=== PATIENT | female | born 1930 | race Caucasian/White ===

== ENCOUNTER 2017-11-29 12:09 | Emergency (ER) | payer MEDICARE ==
[~2017-11-29] VITALS: Ht 160 cm; Wt 63.6 kg
[2017-11-29 12:11] VITALS: BP 132/62; PULSE 81; RESP 20; TEMP 98.6; O2SAT 91
[2017-11-29] MEDS ORDERED: SIMV40TA PO (12:49)
[2017-11-29] MEDS ORDERED: HYDR25TA5 PO (12:49)
[2017-11-29] MEDS ORDERED: MELO7.5T27 PO (12:49)
[2017-11-29] MEDS ORDERED: CILO50TA PO (12:49)
[2017-11-29] MEDS ORDERED: ASPI81CH6 CHEW (12:49)
[2017-11-29] MEDS ORDERED: UMEC1AER INH (12:49)
[2017-11-29] MEDS ORDERED: AMLO10TA2 PO (12:49)
[2017-11-29] MEDS ORDERED: CALC8.5C CHEW (12:49)
[2017-11-29] MEDS ORDERED: MULT-65 PO (12:49)
[2017-11-29] MEDS ORDERED: LISI10TA3 PO (12:49)
[2017-11-29] MEDS ORDERED: SACC1CAP3 PO (12:49)
[2017-11-29] MEDS ORDERED: LEVO50TA4 PO (12:49)
[2017-11-29] MEDS ORDERED: BIOTCAP PO (12:49)
--- NOTE | 2017-11-29 12:51 | PD ---
HPI Chief Complaint: GI Complaint Time Seen by Provider: 12:37 Travel History International Travel<30 days: No Contact w/Intl Traveler<30days: No Traveled to known affect area: No History of Present Illness HPI 3 DAYS AGO ONSET OF N/V/D AND RUNNY NOSE/DRY COUGH WELL LLQ AREA PAIN, , NONRAD, ....NO SICK CONTACTS.....NO ALLEVIATING/AGGRAVATING FACTORS.....DENIES ASSOC FACTORS FEVER/NEWTON/CP/BACK PAIN/ PFSH Past Medical History Hx Anticoagulant Therapy: Yes Cerebrovascular Accident: Yes Social History Tobacco Use: No Allergies-Medications (Allergen,Severity, Reaction): Coded Allergies: No Known Drug Allergies (Verified Allergy, Unknown, 11/29/17) Reported Meds & Prescriptions Reported Meds & Active Scripts Active Zofran Odt (Ondansetron Odt) 4 Mg Tab 4 Mg SL Q6HR PRN Tamiflu (Oseltamivir Phosphate) 75 Mg Cap 75 Mg PO BID 5 Days Reported Meloxicam 7.5 Mg Tab 7.5 Mg PO DAILY Biotin 5 Mg Cap 5 Mg PO Cilostazol 50 Mg Tab 50 Mg PO DAILY Simvastatin 40 Mg Tab 40 Mg PO HS Lisinopril 10 Mg Tab 10 Mg PO DAILY Hydrochlorothiazide 25 Mg Tab 25 Mg PO DAILY Amlodipine (Amlodipine Besylate) 10 Mg Tab 10 Mg PO DAILY Anoro Ellipta Inh (Umeclidinium/Vilanterol) 62.5-25 Mcg/Act Aero 1 Puff INH DAILY Viactiv (Calcium-Vitamins D & K) 500-500-40 Mg-Unit-Mcg Chew 1 Ea CHEW Probiotic (Saccharomyces Boulardii) 250 Mg Cap 250 Mg PO DAILY Multi-Vitamin Daily (Multiple Vitamin) 1 Tab Tab 1 Tab PO DAILY Levothyroxine (Levothyroxine Sodium) 50 Mcg Tab 50 Mcg PO DAILY Aspirin Low Dose (Aspirin) 81 Mg Chew 81 Mg CHEW DAILY Review of Systems Except as stated in HPI: all other systems reviewed are Neg General / Constitutional: No: Fever Eyes: No: Visual changes HENT: No: Headaches Cardiovascular: No: Chest Pain or Discomfort Respiratory: No: Shortness of Breath Gastrointestinal: Positive: Nausea, Vomiting, Diarrhea, Abdominal Pain Genitourinary: No: Dysuria Musculoskeletal: No: Pain Skin: No Rash Neurologic: No: Weakness Psychiatric: No: Depression Endocrine: No: Polydipsia Hematologic/Lymphatic: No: Easy Bruising Physical Exam Narrative GENERAL: SKIN: Warm and dry. HEAD: Atraumatic. Normocephalic. EYES: Pupils equal and round. No scleral icterus. No injection or drainage. ENT: No nasal bleeding or discharge. Mucous membranes pink and moist. NECK: Trachea midline. No JVD. CARDIOVASCULAR: Regular rate and rhythm. RESPIRATORY: No accessory muscle use. Clear to auscultation. Breath sounds equal bilaterally. GASTROINTESTINAL: Abdomen soft, non-tender, nondistended. MUSCULOSKELETAL: Extremities without clubbing, cyanosis, or edema. No obvious deformities. NEUROLOGICAL: Awake and alert. No obvious cranial nerve deficits. Motor grossly within normal limits. Five out of 5 muscle strength in the arms and legs. Normal speech. PSYCHIATRIC: Appropriate mood and affect; insight and judgment normal. Data Data Last Documented VS Vital Signs Date Time Temp Pulse Resp B/P (MAP) Pulse Ox O2 Delivery O2 Flow Rate FiO2 11/29/17 17:51 11/29/17 15:51 80 14 93 Room Air 11/29/17 12:11 98.6 Orders Orders Complete Blood Count With Diff (11/29/17 12:17) Comprehensive Metabolic Panel (11/29/17 12:17) Urinalysis - C+S If Indicated (11/29/17 12:17) Lipase (11/29/17 12:17) Chest, Pa & Lat (11/29/17 12:17) Electrocardiogram (11/29/17 ) Act Partial Throm Time (Ptt) (11/29/17 12:17) Prothrombin Time / Inr (Pt) (11/29/17 12:17) Influenzae A/B Antigen (11/29/17 12:18) Ct Abd/Pel W/O Iv Contrast (11/29/17 12:47) Oseltamivir (Tamiflu) (11/29/17 15:15) Sodium Chlor 0.9% 1000 Ml Inj (Ns 1000 M (11/29/17 15:15) Ed Discharge Order (11/29/17 17:19) Labs Laboratory Tests Test 11/29/17 12:10 11/29/17 12:11 11/29/17 12:48 11/29/17 13:08 Prothrombin Time 10.5 SEC Prothromb Time International Ratio 1.0 RATIO Activated Partial Thromboplast Time 42.7 SEC White Blood Count 4.1 TH/MM3 Red Blood Count 5.32 MIL/MM3 Hemoglobin 15.7 GM/DL Hematocrit 46.3 % Mean Corpuscular Volume 87.0 FL Mean Corpuscular Hemoglobin 29.5 PG Mean Corpuscular Hemoglobin Concent 33.9 % Red Cell Distribution Width 14.4 % Platelet Count 154 TH/MM3 Mean Platelet Volume 8.3 FL Neutrophils (%) (Auto) 65.3 % Lymphocytes (%) (Auto) 20.9 % Monocytes (%) (Auto) 12.9 % Eosinophils (%) (Auto) 0.0 % Basophils (%) (Auto) 0.9 % Neutrophils # (Auto) 2.7 TH/MM3 Lymphocytes # (Auto) 0.9 TH/MM3 Monocytes # (Auto) 0.5 TH/MM3 Eosinophils # (Auto) 0.0 TH/MM3 Basophils # (Auto) 0.0 TH/MM3 CBC Comment DIFF FINAL Differential Comment Blood Urea Nitrogen 40 MG/DL Creatinine 2.38 MG/DL Random Glucose 95 MG/DL Total Protein 7.9 GM/DL Albumin 3.7 GM/DL Calcium Level 8.9 MG/DL Alkaline Phosphatase 56 U/L Aspartate Amino Transf (AST/SGOT) 46 U/L Alanine Aminotransferase (ALT/SGPT) 39 U/L Total Bilirubin 0.4 MG/DL Sodium Level 134 MEQ/L Potassium Level 3.7 MEQ/L Chloride Level 97 MEQ/L Carbon Dioxide Level 26.0 MEQ/L Anion Gap 11 MEQ/L Estimat Glomerular Filtration Rate 19 ML/MIN Lipase 160 U/L Urine Color YELLOW Urine Turbidity CLEAR Urine pH 5.0 Urine Specific [place] 1.016 Urine Protein TRACE mg/dL Urine Glucose (UA) NEG mg/dL Urine Ketones NEG mg/dL Urine Occult Blood NEG Urine Nitrite NEG Urine Bilirubin NEG Urine Urobilinogen LESS THAN 2.0 MG/DL Urine Leukocyte Esterase NEG Urine RBC LESS THAN 1 /hpf Urine WBC 2 /hpf Urine Bacteria OCC /hpf Urine Hyaline Casts 1 /lpf Urine Mucus FEW /lpf Microscopic Urinalysis Comment CULT NOT INDICATED MDM Medical Decision Making Medical Screen Exam Complete: Yes Emergency Medical Condition: Yes Medical Record Reviewed: Yes Interpretation(s) NSR 83, LBBB, NO STEMI PATTERN, PAC'S NOTED Differential Diagnosis FLU V DIVERTIC V COLITIS V VIRAL SYNDROME Narrative Course CT NEGATIVE FOR COLITIS/DIVERTIC....ELECTROLYTES SHOWED RENAL INSUFFICIENCY C/W DEHYDRATION. PATIENT WAS GIVEN TAMIFLU AND REHYDRATED BY IV. PATIENT ALSO TOLERATED PO CHALLENGE AND AT THIS TIME PATIENT FEELS WELL ENOUGH and is requesting TO GO HOME.....patient advised to return if she continues to feel ill Diagnosis Primary Impression: FLU Patient Instructions: Full Liquid Diet (GEN), General Instructions, Influenza ( DC) Scripts Ondansetron Odt (Zofran Odt) 4 Mg Tab 4 MG SL Q6HR Y for Nausea/Vomiting, #20 TAB 0 Refills Prov: Tyler Yu MD 11/29/17 Oseltamivir (Tamiflu) 75 Mg Cap 75 MG PO BID for Mgmt Viral Infection for 5 Days, #10 CAP 0 Refills Prov: Tyler Yu MD 11/29/17 Disposition: 01 DISCHARGE HOME Condition: Stable Tyler Yu MD Nov 29, 2017 12:51
--- NOTE | 2017-11-29 13:11 | RADRPT ---
EXAM DATE/TIME: 11/29/2017 12:59 [facility] COMPARISON: No previous studies available for comparison. INDICATIONS : Cough MEDICAL HISTORY : Chronic obstructive pulmonary disease. thyroid difficulties, high blood pressure SURGICAL HISTORY : iliac bypass ENCOUNTER: Initial ACUITY: 3 days PAIN SCORE: 0/10 LOCATION: Bilateral chest FINDINGS: PA and lateral views of the chest demonstrate the lungs to be symmetrically aerated without evidence of mass, infiltrate or effusion. The cardiomediastinal contours are unremarkable. Osseous structure s are intact. CONCLUSION: Normal examination. Giorgio Urbano MD on November 29, 2017 at 13:08 Board Certified Radiologist. This report was verified electronically.
[2017-11-29 13:17] LABS: AUTOMATED NEUTROPHIL # 2.7 TH/MM3 (1.8-7.7); BASOPHIL % 0.9 % (0.0-2.0); HEMATOCRIT 46.3 % (35.0-46.0); HEMOGLOBIN 15.7 GM/DL (11.6-15.3); LYMPH % 20.9 % (9.0-44.0); LYMPHOCYTE # 0.9 TH/MM3 (1.0-4.8); MEAN CORPUSCULAR HEMOGLOBIN 29.5 PG (27.0-34.0); MEAN CORPUSCULAR HGB CONC 33.9 % (32.0-36.0); MEAN PLATELET VOLUME 8.3 FL (7.0-11.0); MONO % 12.9 % (0.0-8.0); MONOCYTE # 0.5 TH/MM3 (0-0.9); NEUT % 65.3 % (16.0-70.0); PLATELET COUNT 154 TH/MM3 (150-450); RED BLOOD COUNT 5.32 MIL/MM3 (4.00-5.30); RED CELL DISTRIBUTION WIDTH 14.4 % (11.6-17.2); WHITE BLOOD COUNT 4.1 TH/MM3 (4.0-11.0)
--- NOTE | 2017-11-29 13:25 | RADRPT ---
EXAM DATE/TIME: 11/29/2017 13:04 [facility] COMPARISON: No previous studies available for comparison. INDICATIONS : Weakness, decrease appetite, diarrhea and abdominal pain. ORAL CONTRAST: No oral contrast ingested. RADIATION DOSE: 6.26 CTDIvol (mGy) MEDICAL HISTORY : None SURGICAL HISTORY : None. ENCOUNTER: Initial ACUITY: 1 day PAIN SCALE: 1/10 LOCATION: abdomen TECHNIQUE: Volumetric scanning of the abdomen and pelvis was performed. Using automated exposure control and ad justment of the mA and/or kV according to patient size, radiation dose was kept as low as reasonably achievable to obtain optimal diagnostic quality images. DICOM format image data is available electro nically for review and comparison. FINDINGS: Examination quality degraded by respiratory motion artifact. LOWER LUNGS: The visualized lower lungs are clear. LIVER: Mild decreased density without lesion. There is no dilation of the biliary tree. No calcified galls tones. SPLEEN: Normal size without lesion. PANCREAS: Within normal limits. KIDNEYS: Normal in size and shape. There is no mass, stone, or hydronephrosis. There is a low-density lesion in the right mid kidney measuring 3.9 cm and a low density lesion in the left mid kidney measuring 1. 4 cm and both have density measurements consistent with simple cysts. ADRENAL GLANDS: Within normal limits. VASCULAR: There is no aortic aneurysm. There is severe atherosclerotic disease. Arterial stents extend from the distal aorta into the common iliac arteries bilaterally. A femoral-femoral bypass graft is present i n the inguinal region. BOWEL/MESENTERY: The stomach, small bowel, and colon demonstrate no acute abnormality. There is no free intraperitone al air or fluid. There is a small hiatal hernia. Moderate severity sigmoid diverticulosis. ABDOMINAL WALL: Within normal limits. RETROPERITONEUM: There is no lymphadenopathy. BLADDER: No wall thickening or mass. REPRODUCTIVE: Within normal limits. INGUINAL: There is no lymphadenopathy or hernia. MUSCULOSKELETAL: There are degenerative changes of the lumbar spine. CONCLUSION: 1. No acute finding is identified within the abdomen or pelvis. Please note examination quality is de graded by respiratory motion artifact. 2. Nonacute findings include severe atherosclerotic disease, mild hepatic steatosis, small hiatal her herb, and sigmoid diverticulosis. Alexey Aragon MD on November 29, 2017 at 13:17 Board Certified Radiologist. This report was verified electronically.
[2017-11-29 13:32] LABS: PROTHROMBIN TIME - PATIENT 10.5 SEC (9.8-11.6)
[2017-11-29 13:36] LABS: ALBUMIN 3.7 GM/DL (3.4-5.0); AST (GOT) 46 U/L (15-37); BLOOD UREA NITROGEN 40 MG/DL (7-18); CALCIUM 8.9 MG/DL (8.5-10.1); CHLORIDE 97 MEQ/L (98-107); CREATININE 2.38 MG/DL (0.50-1.00); GLOMERULAR FILTRATION RATE 19 ML/MIN (>89); GLUCOSE,RANDOM 95 MG/DL (74-106); LIPASE 160 U/L (73-393); SODIUM (NA) 134 MEQ/L (136-145)
[2017-11-29 13:37] LABS: ALT (GPT) 39 U/L (10-53)
[2017-11-29 13:39] LABS: ALKALINE PHOSPHATASE 56 U/L (45-117); TOTAL BILIRUBIN ADULT 0.4 MG/DL (0.2-1.0); TOTAL PROTEIN 7.9 GM/DL (6.4-8.2)
[2017-11-29 14:02] LABS: BACTERIA, URINE OCC /hpf; BILIRUBIN, URINE NEG (NEG); BLOOD, URINE NEG (NEG); GLUCOSE,URINE NEG (NEG); HYALINE CAST, URINE 1 /lpf (RARE); KETONE, URINE NEG (NEG); MUCUS URINE FEW /lpf (OCC); NITRITE,URINE NEG (NEG); URINE COLOR YELLOW (YELLW/STRAW); URINE LEUKOCYTE ESTERASE NEG (NEG)
[2017-11-29] MEDS ORDERED: SODIUM CHLOR 0.9% 1000 ML INJ 1,000 ML IV ONE (15:15)
[2017-11-29] MEDS: OSELTAMIVIR PHOSPHATE 75 MG CAP PO ONE ×2 (15:20→15:50)
[2017-11-29 15:51] VITALS: BP 154/69; PULSE 80; RESP 14; O2SAT 93
[2017-11-29] MEDS ORDERED: OSEL75 PO (17:33)
[2017-11-29] MEDS ORDERED: ZOFR4TAB3 SL (17:33)
--- NOTE | 2017-11-30 23:00 | EKG ---
Date Performed: 11/29/2017 Time Performed: 12:45:37 PTAGE: 86 years EKG: Sinus rhythm WITH OCCASIONAL SUPRAVENTRICULAR PREMATURE COMPLEXES LEFT BUNDLE BRANCH BLOCK ABNORMAL ECG NO PREVIOUS TRACING DOCTOR: Paul Coburn Interpretating Date/Time 11/30/2017 22:58:53
== END 2017-11-29 17:52 | disposition home or self-care (01) ==
LOC: NEPE 12:09
DX: J11.1 Influenza due to unidentified influenza virus with other respiratory manifestations (principal); R11.2 Nausea with vomiting, unspecified; R19.7 Diarrhea, unspecified; K76.0 Fatty (change of) liver, not elsewhere classified; K44.9 Diaphragmatic hernia without obstruction or gangrene; K57.30 Diverticulosis of large intestine without perforation or abscess without bleeding; I44.7 Left bundle-branch block, unspecified; R94.31 Abnormal electrocardiogram [ECG] [EKG]; Z86.73 Personal history of transient ischemic attack (TIA), and cerebral infarction without residual deficits
CPT/HCPCS: 71046; 74176; 80053; 81001; 83690; 85025; 85610; 85730; 87804; 93005; 96360; 99285; J7030